=== PATIENT | female | born 1955 | race Caucasian/White ===

== ENCOUNTER 2017-01-26 07:05 | Day surgery (SDC) | payer OTHER ==
[2017-01-26] VITALS (8 sets, daily range): BP systolic 105–149; BP diastolic 58–76
[~2017-01-26] VITALS: Ht 160 cm; Wt 59.4 kg
[~2017-01-26 07:05] MED LIST: Diclofenac Sod 0.1% Op Soln ONE; Gatifloxacin Opth Solution 0.5% ONE; Phenylephrine 2.5% Op Soln ONE
[2017-01-26] MEDS ORDERED: BSS 500ml btl ONE (07:14)
[2017-01-26] MEDS ORDERED: Dexamethasone 4mg/ml vial ONE (07:14)
[2017-01-26] MEDS ORDERED: Lidocaine 1% MPF 10mg/ml 5ml ONE (07:14)
[2017-01-26] MEDS ORDERED: Povidone-Iodine 5% opth solution ONE (07:14)
[2017-01-26] MEDS ORDERED: Sodium Hyaluronate 14 mg/ml 0.85ml ONE (07:15)
[2017-01-26] MEDS ORDERED: EPINEPHrine 1mg/1ml Amp ONE (07:15)
[2017-01-26] MEDS ORDERED: BSS 15ml BTL ONE (07:15)
[2017-01-26] MEDS: Tobradex Opth Susp 2.5ml LEFT EYE SCH ×3 (07:51→08:08)
[2017-01-26] MEDS: Gatifloxacin Opth Solution 0.5% LEFT EYE SCH ×3 (07:51→08:09)
[2017-01-26] MEDS: Akten 3.5% 1ml Btl LEFT EYE SCH ×3 (07:51→08:08)
[2017-01-26] MEDS: Phenylephrine 2.5% Op Soln LEFT EYE SCH ×3 (07:51→08:09)
[2017-01-26] MEDS: Diclofenac Sod 0.1% Op Soln LEFT EYE SCH ×3 (07:51→08:09)
[2017-01-26] MEDS: Tropicamide 1% Opth Soln LEFT EYE SCH ×3 (07:51→08:08)
[2017-01-26] MEDS ORDERED: LIPITOR80 MG ORAL (08:13)
[2017-01-26] MEDS ORDERED: METOPROLOL SUCC25 MG ORAL (08:13)
--- NOTE | 2017-01-26 08:33 | Pre-Procedure Note/Attestation ---
Pre-Procedure Note/Attestation Complete Prior to Procedure Planned Procedure: left Procedure Narrative: cataract extraction with implant left eye Indications for Procedure Pre-Operative Diagnosis: cataract left eye Attestation I attest that I discussed the nature of the procedure; its benefits; risks and complications; and alternatives (and the risks and benefits of such alternatives ), prior to the procedure, with the patient (or the patient's legal junior sales representative). I attest that, if there was a reasonable possibility of needing a blood transfusion, the patient (or the patient's legal junior sales representative) was given the [facility] standardized written summary, pursuant to the Maurizio Antonia Blood Safety Act ([place] Health and Safety Code # 1645, as amended). I attest that I re-evaluated the patient just prior to the surgery and that there has been no change in the patient's H&P, except as documented below: PALMA LOVE January 26, 2017 08:33
[2017-01-26] MEDS ORDERED: Propofol 10mg/ml 20ml IV ONE (09:00)
[2017-01-26] MEDS ORDERED: Midazolam 2mg/2ml Inj ONE (09:00)
[2017-01-26] MEDS ORDERED: fentaNYL 100 mcg/2 mL IV ONE (09:00)
[2017-01-26] MEDS ORDERED: LR 1000ml ONE (09:00)
[2017-01-26] MEDS ORDERED: DiphenhydrAMINE 50mg/ml Inj ONE (09:04)
[2017-01-26] MEDS ORDERED: PROPRANOLOL HCL10 MG ORAL (09:05)
--- NOTE | 2017-01-26 09:53 | Brief Operative Note ---
Immediate Post Operative Note Operative Note Pre-op Diagnosis: cataract left eye Procedure: phacoemulsification of cataract with implant left eye Post-op Diagnosis: same as pre-op Surgeon: palma josé Senior Java Programmer Analyst: none Anesthesiologist: yusef urbina Anesthesia: MAC Specimen: none Complications: none Condition: stable Estimated Blood Loss: none Drains: none Implant(s) used?: Yes PALMA JOSÉ January 26, 2017 09:53
--- NOTE | 2017-01-26 10:13 | Immediate Post-Op Evaluation ---
Immediate Post-Op Evalulation Immediate Post-Op Evalulation Procedure: cataract extraction left eye Date of Evaluation: January 26, 2017 Time of Evaluation: 09:55 IV Fluids: 200 Blood Pressure Systolic: 105 Blood Pressure Diastolic: 65 Pulse Rate: 58 Respiratory Rate: 14 O2 Sat by Pulse Oximetry: 100 Temperature (Fahrenheit): 97.4 Nausea: No Vomiting: No Complications none Patient Status: awake, reacts, patent Hydration Status: adequate Drug: none PAUL NICOLE CRNA January 26, 2017 10:13
--- NOTE | 2017-01-26 10:14 | Anethesia Preoperative Eval ---
Anesthesia Pre-op PMH/ROS General Date of Evaluation: January 26, 2017 Time of Evaluation: 09:10 Anesthesiologist: carlitos ASA Score: ASA 2 Mallampati Score Class I : Soft palate, uvula, fauces, pillars visible Class II: Soft palate, uvula, fauces visible Class III: Soft palate, base of uvula visible Class IV: Only hard plate visible Mallampati Classification: Class II Surgeon: arnav Diagnosis: cataract Surgical Procedure: cataract extraction Anesthesia History: none Family History: no anesthesia problems Allergies: Coded Allergies: PENICILLINS (Verified Allergy, Unknown, 01/25/17) Medications: see eMAR Past Medical History Cardiovascular: Denies: CAD, HTN, [place], arrhythmia, other, valve dz Pulmonary: Denies: COPD, [place], asthma, other Gastrointestinal/Genitourinary: Denies: CRI, ESRD, GERD, other Neurologic/Psychiatric: Reports: depression/anxiety Endocrine: Denies: DM, hypothyroidism, other, steroids HEENT: Reports: cataract (L) Hematology/Immune: Denies: DVT, anemia, bleeding disorder, other Musculoskeletal/Integumentary: Denies: DDD, DJD, OA, RA, edema, other Anesthesia Pre-op Phys. Exam Physician Exam Last Vital Signs Date Time Temp Pulse Resp B/P Pulse Ox O2 Delivery O2 Flow Rate FiO2 01/26/17 09:58 57 20 110/68 100 Nasal Cannula 2.0 01/26/17 09:53 97.4 Constitutional: NAD Neurologic: CN 2-12 intact Cardiovascular: RRR Respiratory: CTA Gastrointestinal: S/NT/ND Airway Exam Mallampati Classification 2 Mallampati Score: Class II MO: full ROM: full Dentures: no lower, no upper Anesthesia Pre-op A/P Studies Pre-op Studies: EKG - sr Risk Assessment & Plan Plan: mac Status Change Before Surgery: No Pre-Antibiotics Drug: none PAUL NICOLE CRNA January 26, 2017 10:14
--- NOTE | 2017-01-26 10:15 | 48 Hour Post Anesthesia Eval ---
Post Anesthesia Evaluation Procedure: cataract extraction left eye Date of Evaluation: January 26, 2017 Time of Evaluation: 10:15 Blood Pressure Systolic: 105 0: 65 Pulse Rate: 48 Respiratory Rate: 14 O2 Sat by Pulse Oximetry: 100 Airway: patent Nausea: No Vomiting: No Hydration Status: adequate Mental Status/LOC: patient returned to baseline Post-Anesthesia Complications: none Follow-up care needed: N/A PAUL NICOLE CRNA January 26, 2017 10:15
--- NOTE | 2017-01-26 12:00 | Operative Note - Dictated ---
DATE OF OPERATION: 01/26/2017 PREOPERATIVE DIAGNOSIS: Cataract, left eye. POSTOPERATIVE DIAGNOSIS: Cataract, left eye. PROCEDURE: Phacoemulsification cataract left eye with placement of posterior chamber intraocular lens. SURGEON: Efren Sanchez M.D. JUVENILE COUNSELOR: None. ANESTHESIA: MAC/topical. ANESTHESIOLOGIST: Patience Lopez C.R.N.A. INDICATION FOR PROCEDURE: Poor vision left eye. DESCRIPTION OF FINDINGS: Nuclear sclerotic cataract, left eye. DESCRIPTION OF PROCEDURE: The patient received a topical anesthetic block consisting of 3.5% Akten eye drops. The eye was prepped and draped in usual manner. A lid speculum was placed and a Zeiss microscope was positioned. The temporal corneal groove was made with a robert blade. A SuperSharp blade made a stab incision at the 6 o'clock position. A 0.1 mL of 1% nonpreserved intracameral lidocaine was injected. Healon was instilled into the anterior chamber and a 2.5/2.8 mm trapezoidal robert blade was used to complete the temporal corneal wound. A cystotome was used to create the anterior capsular flap. Utrata forceps were used to complete the capsulorrhexis. BSS on a cannula was used to hydrodissect the nucleus. The lens nucleus was phacoemulsified in a phaco-fracture technique. Remaining cortical material was removed with the I/A and the posterior capsule polished with the I/A on Cap vac. Healon was instilled in the capsular bag and anterior chamber, and an Chavis foldable three piece post chamber intraocular lens, model [id number], power 24.5 diopter, serial #[id number] was placed in the injector. The lens was put in the capsular bag. The I/A tip was used to remove the Healon and position the lens. The wound edge was hydrated with BSS and a blunt-tipped cannula. The wound was checked and found to be watertight. The lid speculum was removed and a drop of TobraDex and Zymaxid was placed. A clear plastic shield was taped over the eye. The patient tolerated well and left the operating room in good condition. Efren Sanchez M.D. ([facility] [place]) DR: Tahir JOB#: [id number] CC: Ian
== END 2017-01-26 12:10 | disposition home or self-care (01) ==
LOC: SUR 07:05
DX: H25.12 Age-related nuclear cataract, left eye (principal); I25.10 Atherosclerotic heart disease of native coronary artery without angina pectoris; L92.0 Granuloma annulare; E78.5 Hyperlipidemia, unspecified; K21.9 Gastro-esophageal reflux disease without esophagitis; F32.9 Major depressive disorder, single episode, unspecified; F41.9 Anxiety disorder, unspecified; Z87.442 Personal history of urinary calculi; Z90.49 Acquired absence of other specified parts of digestive tract; Z88.0 Allergy status to penicillin
CPT/HCPCS: 66984; J0171; J1100; J1200; J2250; J2704; J3010; J7120; V2632; 94003; 94150